=== PATIENT | male | born 1980 | race Caucasian/White ===

== ENCOUNTER 2016-09-15 11:57 | Emergency (ER) | payer MEDICAID ==
[2014-09-13 05:59] VITALS: BMI 27.5
[~2016-09-15 11:57] MED LIST: HYDROCODONE-APA1 TAB PO
[2016-09-15 13:51] LABS: APPEARANCE CLEAR (CLEAR); BILIRUBIN NEGATIVE (NEGATIVE); COLOR YELLOW (YELLOW); GLUCOSE NEGATIVE (NEGATIVE); KETONE NEGATIVE (NEGATIVE); LEUKOCYTE ESTERASE NEGATIVE (NEGATIVE); NITRITE NEGATIVE (NEGATIVE); PROTEIN NEGATIVE (NEGATIVE); SPECIFIC GRAVITY 1.015 (1.005-1.020); UROBILINOGEN NORMAL (NORMAL)
[2016-09-15 13:57] LABS: UDS - AMPHET NEGATIVE QUAL (NEGATIVE); UDS - BARB NEGATIVE QUAL (NEGATIVE); UDS - BENZO POSITIVE QUAL (NEGATIVE); UDS - COCAINE NEGATIVE QUAL (NEGATIVE); UDS - METH NEGATIVE QUAL (NEGATIVE); UDS - OPIATE POSITIVE QUAL (NEGATIVE); UDS - PCP NEGATIVE QUAL (NEGATIVE); UDS - THC NEGATIVE QUAL (NEGATIVE)
== END 2016-09-15 14:28 | disposition home or self-care (01) ==
LOC: D.ER 11:57
PROVIDERS: Nurse Practitioner Acute Care
DX: L25.9 Unspecified contact dermatitis, unspecified cause (principal)

== ENCOUNTER 2016-12-17 14:53 | Emergency (ER) | payer MEDICAID ==
[2014-09-13 05:59] VITALS: BMI 27.5
== END 2016-12-17 19:25 | disposition left against medical advice (07) ==
LOC: D.ER 14:53
DX: M54.2 Cervicalgia (principal)

== ENCOUNTER 2017-02-14 12:06 | Emergency (ER) | payer MEDICAID ==
[2014-09-13 05:59] VITALS: BMI 27.5
== END 2017-02-14 14:17 | disposition home or self-care (01) ==
LOC: D.ER 12:06
DX: M54.12 Radiculopathy, cervical region (principal); F17.200 Nicotine dependence, unspecified, uncomplicated

== ENCOUNTER 2017-04-29 18:26 | Emergency (ER) | payer MEDICAID ==
[2014-09-13 05:59] VITALS: BMI 27.5
== END 2017-04-29 19:45 | disposition home or self-care (01) ==
LOC: D.ER 18:26
DX: M54.5 Low back pain (principal); M62.830 Muscle spasm of back; M54.30 Sciatica, unspecified side; F17.200 Nicotine dependence, unspecified, uncomplicated

== ENCOUNTER 2017-09-29 17:45 | Emergency (ER) | payer MEDICAID ==
[2014-09-13 05:59] VITALS: BMI 27.5
[2017-09-29 18:56] LABS: APPEARANCE CLEAR (CLEAR); BILIRUBIN NEGATIVE (NEGATIVE); COLOR YELLOW (YELLOW); GLUCOSE NEGATIVE (NEGATIVE); KETONE NEGATIVE (NEGATIVE); NITRITE NEGATIVE (NEGATIVE); PROTEIN NEGATIVE (NEGATIVE); UROBILINOGEN NORMAL (NORMAL)
== END 2017-09-29 19:22 | disposition home or self-care (01) ==
LOC: D.ER 17:45
PROVIDERS: Nurse Practitioner Family
DX: M54.2 Cervicalgia (principal); W20.8XXA Other cause of strike by thrown, projected or falling object, initial encounter; Y93.89 Activity, other specified; Y92.019 Unspecified place in single-family (private) house as the place of occurrence of the external cause; F17.200 Nicotine dependence, unspecified, uncomplicated

== ENCOUNTER 2017-10-15 08:27 | Emergency (ER) | payer MEDICAID ==
[2014-09-13 05:59] VITALS: BMI 27.5
== END 2017-10-15 12:21 | disposition left against medical advice (07) ==
LOC: D.ER 08:27
DX: M54.2 Cervicalgia (principal)

== ENCOUNTER 2017-12-08 21:57 | Emergency (ER) | payer MEDICAID ==
[2014-09-13 05:59] VITALS: BMI 27.5
== END 2017-12-09 00:40 | disposition home or self-care (01) ==
LOC: D.ER 21:57
DX: L03.114 Cellulitis of left upper limb (principal)

== ENCOUNTER 2019-05-10 11:22 | Observation (INO) | payer MEDICAID ==
[~2019-05-10] VITALS: Ht 190.5 cm; Wt 108.7 kg
--- NOTE | ~2019-05-10 | HEMODYNAMI ---
PATIENT:NOMI WESTBROOK MEDICAL RECORD: [id number] : 78 [id number] ADMISSION DATE: 05/10/19 Generatedon:05/11/201910:48 Patient name: NOMI WESTBROOK Patient #: [id number] SSN: [id number] : 1980 Date of study: 05/11/2019 Page: Of Hemodynamic Procedure Report Patient Data Patient Demographics Procedure consent was obtained First Name: NOMI Gender: Male Last Name: PIETRO : 1980 Middle Initial: JULIO C Age: 38 year(s) Patient #: [id number] Race: SSN: [id number] Additional ID: [id number] Contact details [address]: [address] [place] [address] State: [place] City: [place] Zip code: [address] Admission Admission Data Admission Date: 05/10/2019 Admission Time: 11:22 Arrival Date: 05/10/2019 Arrival Time: 11:22 Admit Source: Emergency Insurance Payor: Medicaid department Room #: D.2115 Height (in.): 73 BSA: 2.33 (m2) Height (cm.): 185.42 BMI: 31.66 (kg/m2) Weight (lbs.): 240 Weight (kg.): 108.86 Lab Results Lab Result Date: 05/11/2019 Lab Result Time: 0:00 Biochemistry Name Units Result Min Max BUN mg/dl 8 --(*---)-- 7 18 Creatinine mg/dl 0.9 --(-*--)-- 0.6 1.3 eGFR ml/min 90 --(*---)-- 90 120 NONAFRICAN CBC Name Units Result Min Max Hemoglobin g/dl 16.1 --(--*-)-- 13.5 17.5 Procedure Procedure Types Cath Procedure Diagnostic Procedure LHC LHC w/Coronaries Sedation Charges Moderate Sedation up to 15 minutes Procedure Description Procedure Date Procedure Date: 05/11/2019 Procedure Start Time: 10:36 Procedure End Time: 10:45 Procedure Staff Name Function Torres Sams MD Performing Physician Eduarda Howell RT Monitor Maya Johnson RT Scrub Ricco Alexis RT Athlete Marketing Agent Fabiola Clark RN Nurse Procedure Data Cath Procedure Fluoroscopy Diagnostic fluoroscopy Total fluoroscopy Time: 1.4 time: 1.4 min min Diagnostic fluoroscopy Total fluoroscopy dose: 603 dose: 603 mGy mGy Contrast Material Contrast Material Type Amount (ml) Isovue 300 46 Entry Location Entry Primary Successful Side Size Upsize Upsize Entry Closure Mary ccessful Closure Location (Fr) 1 (Fr) 2 (Fr) Remarks Device Remarks Radial Right 6 Fr Mechanical artery Short Compression Estimated blood loss: 5 ml Diagnostic catheters Device Type Used For End Catheter Placement DIAGNOSTIC [place] 110cm 5 Multi-vessel Fr catheter ([id number]) Angiography Procedure Complications No complications Procedure Medications Medication Administration Route Dosage 0.9% NaCl I.V. 100 ml/hr Oxygen etCO2 Nasal cannula 2 l/min Lidocaine 2% added to field 20 Heparin Flush Bag added to field 2 bags (1000units/500ml NS) Radial Cocktail added to field 1 syringe (Verapamil 2mg/Nitro 400mcg/Heparin 1500units) Versed I.V. 2 mg Fentanyl I.V. 100 mcg Versed I.V. 2 mg Versed I.V. 2 mg Solumedrol I.V. 125 mg Hemodynamics Rest BSA: 2.33 (m2) HGB: 16.1 (g/dl) O2 Consumption: Estimated: 296.88 (ml/min) O2 Co nsumption indexed: Estimated:127.42 (ml/min/m) Heart Rate: 83 (bpm) Pressure Samples Time Site Value (mmHg) Purpose Heart Use Rate(bpm) 10:39 LV 85/4,-2 Snapshot 96 10:40 AO 99/75(87) Pullback 88 10:40 LV 105/3,5 Pullback 88 Gradients Valve Time Site 1 Site 2 Mean SEP/DFP Peak To Heart Use (mmHg) (sec/min) Peak Rate (mmHg) (bpm) Aortic 10:40 LV AO 5 16 6 88 105/3,5 99/75(87) Calculations Valve P-P Mean Valve Index Valve Source Name Gradient Area Flow (cm2) Aortic 6 5 6 5 Snapshots Pre Cath Intra NCS Post Cath Vital Signs Time Heart Resp SPO2 etCO2 NIBP (mmHg) Rhythm Pain Sedation Rate (ipm) (%) (mmHg) Status Level (bpm) 10:19:16 70 12 100 41.4 Measuring NSR 0 (11) 10(A) , No pain 10:23:17 67 17 98 42.1 140/91(108) NSR 0 (11) 10(A) , No pain 10:27:58 85 17 99 27.8 139/87(103) NSR 0 (11) 10(A) , No pain 10:32:02 84 16 98 35.4 137/83(104) NSR 0 (11) 10(A) , No pain 10:36:44 76 12 97 40.6 136/78(108) NSR 0 (11) 10(A) , No pain 10:40:50 91 17 97 36.1 117/66(99) NSR 0 (11) 10(A) , No pain 10:44:52 84 16 96 39.1 124/70(95) NSR 0 (11) 10(A) , No pain Medications Time Medication Route Dose Verified Delivered Reason Notes E ffectiveness by by 10:17:36 0.9% NaCl I.V. 100 Torres Fabiola used for ml/hr Flaquita Eduardo procedure MD PEACE 10:17:45 Oxygen etCO2 2 l/min Torres Malhotraa used for Nasal Flaquita Eduardo procedure cannula MD [facility] 10:17:50 Lidocaine 2% added 20ml Torres Macdonald for local to vial Flaquita Flaquita anesthetic field MD LUONG 10:17:55 Heparin Flush added 2 bags Torres Macdonald used for Bag to Flaquita Flaquita procedure (1000units/500ml field MD LUONG NS) 10:18:01 Radial Cocktail added 1 Torres Macdonald used for (Verapamil to syringe Flaquita Flaquita procedure 2mg/Nitro field MD LUONG 400mcg/Heparin 1500units) 10:28:17 Versed I.V. 2 mg Torres Fabiola for Flaquita Eduardo sedation MD [facility] 10:28:27 Fentanyl I.V. 100 mcg Torres Hicks for Flaquita Eduardo sedation MD [facility] 10:33:22 Versed I.V. 2 mg Torres Fabiola for Flaquita Eduardo sedation MD [place] 10:38:36 Versed I.V. 2 mg Torers Fabiola for Flaquita Eduardo sedation RN 10:43:17 Solumedrol I.V. [address] [facility] physician teacher aide Log Time Note 9:59:13 Diagnostic Cath Status : Urgent 10:00:26 Informed consent obtained and on chart 10:00:46 Admit Source: Emergency department 10:00:53 Arrival Date: 05/10/2019 11:22:00 AM 10:01:19 Insurance Payor : Medicaid 10:01:36 Patient Weight : 240 lbs 10:02:00 Patient Height : 73 inches 10:03:42 Lab Result : Creatinine 0.9 mg/dl 10:03:42 Lab Result : BUN 8 mg/dl 10:03:42 Lab Result : eGFR NONAFRICAN 90 ml/min 10:04:05 Lab Result : Hemoglobin 16.1 g/dl 10:04:29 ACC Patient presents with Unstable Angina CCS Anginal Class 3--Marked limitation of physical activity, angina occurs with ordinary activity.. 10:04:40 ACCPatient has been prescribed/administered the following anti-anginal medication within the last 2 weeks: None 10:04:43 Procedure Status Urgent Heart Cath (IP). 10:04:47 Ricco Alexis RT(R) sent for patient. Start room use. 10:04:48 Time tracking: Regular hours (M-F 7:00 - 5:00) 10:04:52 Plan of Care:Hemodynamics will remain stable., Cardiac rhythm will remain stable., Comfort level will be maintained., Respiratory function will remain adequate., Patient/ family verbilizes understanding of procedure., Procedure tolerated without complication., Recovers from procedure without complications.. 10:10:23 Patient received from Med II to CCL 2 Alert and oriented. Tansferred to table in Supine position. 10:10:25 Warm blankets applied, and kip hugger turned on for patient comfort. 10:10:25 Correct patient and procedure confirmed by team. 10:10:27 ECG and BP/O2 sat monitors applied to patient. 10:17:26 Vital chart was started 10:17:36 0.9% NaCl 100 ml/hr I.V. was administered by Fabiola Clark RN; used for procedure; 10:17:45 Oxygen 2 l/min etCO2 Nasal cannula was administered by Fabiola Clark RN; used for procedure; 10:17:50 Lidocaine 2% 20ml vial added to field was administered by Torres Sams MD; for local anesthetic; 10:17:55 Heparin Flush Bag (1000units/500ml NS) 2 bags added to field was administered by Torres Sams MD; used for procedure; 10:18:01 Radial Cocktail (Verapamil 2mg/Nitro 400mcg/Heparin 1500units) 1 syringe added to field was administered by Torres Sams MD; used for procedure; 10:26:19 Baseline sample Acquired. 10:26:22 Rhythm: sinus rhythm 10:26:24 Full Disclosure recording started 10: H&P Date Dictated: 05/11/2019 New H&P dictated by physician.. 10:26:29 Pre-procedure instructions explained to patient. 10::29 Pre-op teaching completed and patient verbalized understanding. 10:26:30 Family in patients room. 10:26:31 Patient NPO since Midnight. 10:26:34 Is the patient allergic to Iodine/contrast media? No. 10:26:35 Was the patient premedicated? No 10:26:36 Is patient on blood thinner?No 10:26:37 Patient diabetic? No. 10:26:42 Previous problem with sedation/anesthesia? No ? 10::43 Snore? Yes 10:26:44 Sleep apnea? No 10:26:45 Deviated septum? No 10:26:46 Opens mouth fully? Yes 10:26:47 Sticks out tongue? Yes 10:26:48 Airway obstruction? No ? 10:26:52 Dentures? Yes out 10:26:55 Pre procedure: right dorsailis pedis pulse 2+ Normal; easily identifiable; not easily obliterated 10:26:57 Pre procedure: left dorsailis pedis pulse 2+ Normal; easily identifiable; not easily obliterated 10:26:59 Patient pain scale 0/10 ?. 10:27:11 IV patent on arrival in left forearm with 0.9% NaCl at [facility]. 10:27:14 Lab results completed and on chart. 10:27:19 Right Radial & Right Groin area was prepped with chlora-prep and draped in sterile fashion 10:27:20 Alarms reviewed by R. N. 10:27:20 Sharps counted by scrub and verified by R.N. 10:27:21 Physician arrived 10:: --------ALL STOP TIME OUT------ :: Final Timeout: patient, procedure, and site verified with staff and physician. All members of the team are in agreement. 10:27:24 Right Radial & Right Groin site verified by team. 10::27 Fire Safety Assessment: A--An alcohol-based skin anteseptic being used preoperatively., C--Open oxygen or nitrous oxide is being used., D--An ESU, laser, or fiber-optic light is being used. 10:27:30 Physical assessment completed. ASA score P 2 - A patient with mild systemic disease as per Torres Sams MD. 10:27:33 1) 90+ Normal kidney functon but urine findings or structural abnormalities or genetic trait point to kidney disease. 10:27:36 Maximum allowable contrast dose (3.7 X eGFR X 0.75)250 ml. 10:27:42 Sedation plan: IV Moderate Sedation Medication:Versed, Fentanyl 10:28:17 Versed 2 mg I.V. was administered by Fabiola Clark RN; for sedation; 10::27 Fentanyl 100 mcg I.V. was administered by Fabiola Clark RN; for sedation; 10:29:00 Use device set Femoral Dx 10:29:01 ACIST Syringe (78159) opened to sterile field. 10:29:01 Bag Decanter (2001S) opened to sterile field. 10:29:02 Medline Cath Pack ([id number]) opened to sterile field. 10:29:03 ACIST Hand Control (30616) opened to sterile field. 10:29:03 ACIST Manifold (56246) opened to sterile field. 10:29:04 Tegaderm 4 x 4 (1626W) opened to sterile field. 10:29:06 EMERALD Guide Wire (865-502) opened to sterile field. 10:33:22 Versed 2 mg I.V. was administered by Fabiola Clark RN; for sedation; 10:36:35 Procedure started. 10:36:50 Local anesthetic to right radial artery with Lidocaine 2% by Torres Sams MD.INITIAL ACCESS ONLY 10:37:08 A 6 Fr Short sheath was inserted into the Right Radial artery 10:37:42 SHEATH 6FR RAIN ([id number]) opened to sterile field. 10:38:00 A DIAGNOSTIC [place] 110cm 5 Fr catheter (550567) was advanced over the wire and used for Multi-vessel Angiography. 10:38:02 Zero performed for pressure channel P1 10:38:36 Versed 2 mg I.V. was administered by Fabiola Clark RN; for sedation; 10:39:48 LV hemodynamics recorded. 10:39:50 LV gram done using MILIAN 10:39:55 Injector settings: Ml/sec: 5, Volume: 15, 10:40:03 EF : 55 % 10:40:15 LCA angiography performed. 10:40:18 Injector settings: Ml/sec: 3, Volume: 6, 10:41:11 RCA angiography performed. 10:41:13 Injector settings: Ml/sec: 3, Volume: 6, 10:41:15 ACCDominant side:Right 10:41:21 Catheter removed. 10:41:36 ZEPHYR REGULAR TR BAND (989689) opened to sterile field. 10:42:32 Sheath removed intact; hemostasis achieved with Mechanical Compression to the Right Radial artery. 10:42:34 Procedure ended.(Physican Out) 10:43:09 Fluoroscopy time 01.40 minutes. 10:43:17 Solumedrol 125 mg I.V. was administered by Fabiola Clark RN; Per physician; 10:43:19 Flurop Dose total: 603 10:43:19 Fluoroscopy dose: 603 mGy 10:43:36 Dose Area Product 31961 mGy/cm. 10:43:40 Contrast amount:Isovue 300 46ml. 10:44:02 Waldron band inflated with 10cc of air. 10:44:41 Post right radial artery:stable 10:45:12 Insertion/operative site no bleeding no hematoma. 10:45:14 Post Procedure Pulses reassessed and unchanged 10:45:17 Post procedure rhythm: unchanged. 10:45:20 Estimated blood loss: 5 ml 10:45:21 Post procedure instruction explained to patient.Patient verbalizes understanding. 10:45:22 Patient needs reinforcement of post procedure teaching. 10:45:31 Procedure type changed to Cath procedure, Diagnostic procedure, LHC, LHC w/Coronaries, Sedation Charges, Moderate Sedation up to 15 minutes 10:45:32 Procedure and supply charges have been captured, reviewed, submitted and are correct. 10:45:39 Procedure Complication : No complications 10:45:42 Vital chart was stopped 10:45:42 See physician's report for complete and final results. 10:45:54 Report given to Pre/Post Procedure Room. 10:45:57 Patient transfered to Pre/Post Procedure Room with Stretcher. 10:45:59 Procedure ended. 10:45:59 Full Disclosure recording stopped 10:46:04 End room use (Document Last) Device Usage Item Name Manufacture Quantity Catalog Hospital Part Current Minimal Lot# / Number Charge Number Stock Stock Serial# Code ACIST Acist 1 21814 491973 273451 047378 20 Syringe Medical (36996) Systems Inc Bag Microtek 1 2001S 967749 22793 721264 5 Decanter Medical Inc. (2001S) Medline Medline 1 [id number] 598966 01177 394934 5 Cath Pack ([id number]) ACIST Hand Acist 1 44980 247040 272954 798601 5 Control Medical (54946) Systems Inc ACIST Acist 1 22102 452037 233235 247665 5 Manifold Medical (02105) Systems Inc Tegaderm 4 3M 1 1626W 402746 940216 272061 5 x 4 (1626W) EMERALD Cardinal 1 502-455 231067 012462 149585 5 Guide Wire Health (502-455) SHEATH 6FR Cardinal 1 [id number] 678892 7486229 238537 5 [facility] (8949349) DIAGNOSTIC Terumo 1 40-5013 356732 321878 870946 5 [place] 110cm 5 Fr catheter (109026) ZEPHYR Cardinal 1 149330 961045 8812423 297965 5 REGULAR TR Health BAND (676873) Signature Audit Haskell Stage Time Signature Unsigned Intra-Procedure 05/11/2019 Eduarda Howell 10:48:13 AM RT(R) Signatures Performing Physician : Signature : Torres Sams MD Date : Time : Monitor : Eduarda Dante RT Signature : Date : Time : Nurse : Fabiola Clark RN Signature : Date : Time : [address] [place] [address]
[2019-05-10] MEDS ORDERED: BAYER CHEWABLE81 MG PO (11:29)
[2019-05-10] MEDS ORDERED: ZESTRIL10 MG PO (11:29)
[2019-05-10] MEDS ORDERED: METOPROLOL TART50 MG PO (11:29)
[2019-05-10] MEDS ORDERED: NEURONTIN 400400 MG PO (11:29)
[2019-05-10] MEDS ORDERED: BUPRENORPHIN-N1 EACH SL (11:30)
[2019-05-10] MEDS ORDERED: OMEPRAZOLE20 M1 PO (11:30)
[2019-05-10 11:54] LABS: BASOPHILS 0.1 % (0-2); EOSINOPHILS 2.2 % (0-7); HEMATOCRIT 44.2 % (42.0-54.0); HEMOGLOBIN 16.1 g/dL (13.5-17.5); IMMATURE GRANULOCYTES 0.1 % (0-5); MCH 31.4 pg (26.0-34.0); MCHC 36.4 g/dL (31.0-37.0); MCV 86.3 fL (80.0-100.0); MEAN PLATELET VOLUME 10.3 fL (7.4-10.4); MONOCYTES 7.1 % (2-11); NEUTROPHILS 61.5 % (40-80); PLATELET COUNT 228 10x3/uL (130-400); RBC 5.12 10x6/uL (4.20-6.10); RDW 13.1 % (11.5-14.5); WBC 7.2 10x3/uL (4.8-10.8)
[2019-05-10 11:55] VITALS: BP 124/90
[2019-05-10 11:59] LABS: APTT 31.7 SECONDS (22.8-39.4); INR 0.98 (0.85-1.17); PROTIME 12.5 SECONDS (11.6-15.0)
[2019-05-10 12:02] LABS: D-DIMER-QUANTITATIVE 0.52 ug/mLFEU (0.20-0.54)
[2019-05-10 12:04] LABS: ALBUMIN 3.8 g/dL (3.4-5.0); ALKALINE PHOSPHATASE 119 U/L (46-116); ALT (SGPT) 30 U/L (10-68); BILIRUBIN - TOTAL 0.44 mg/dL (0.2-1.3); CALC OSMOLALITY 274 mosm/kg (275-300); CALCIUM 9.2 mg/dL (8.5-10.1); CARBON DIOXIDE 26.3 mmol/L (21.0-32.0); CHLORIDE - SERUM 105 mmol/L (98-107); CREATININE - SERUM 0.9 mg/dL (0.6-1.3); POTASSIUM - SERUM 4.2 mmol/L (3.5-5.1); PROTEIN - SERUM 7.6 g/dL (6.4-8.2); SODIUM 138 mmol/L (136-145); UREA NITROGEN 8 mg/dL (7-18); eGFR NON AFRICAN AMERICAN > 90 mL/min (90-120)
[2019-05-10 12:06] LABS: GLUCOSE 118 mg/dL (74-106)
[2019-05-10 12:15] LABS: CKMB 0.9 U/L (0.0-3.6); CREATINE KINASE 71 UL (21-232); MAGNESIUM - SERUM 1.6 mg/dL (1.8-2.4); PRO BNP 43 pg/mL (0-125); TROPONIN-I < 0.017 ng/mL (0.000-0.060)
--- NOTE | 2019-05-10 12:19 | NUR ---
REPORTS LOP [address] VEGA AT THIS TIME.
--- NOTE | 2019-05-10 12:30 | NUR ---
PATIENT UPDATED ON PLAN OF CARE AND DELAYS IN CARE; SKIN IS DRY AND NO LONGER DIAPHORETIC; REPORTS IMPROVEMENT IN CHEST PRESSURE/TIGHTNESS.
--- NOTE | 2019-05-10 12:58 | NUR ---
ATTEMPTED TO CALL REPORT; NURSE UNAVAILABLE AT THIS TIME; WAS TOLD THEY WOULD HAVE HER CALL ME BACK;
--- NOTE | 2019-05-10 13:19 | NUR ---
TRANSFER FROM ER BY W/C. TEJASINTED TO ROOM. CALL LIGHT IN REACH. WILL CONT. PLAN OF CARE.
[2019-05-10 14:02] VITALS: BP 138/103; Ht 190.5 cm; Wt 108.7 kg
[2019-05-10 15:30] VITALS: BP 123/83
[2019-05-10 17:21] LABS: CREATINE KINASE 59 UL (21-232)
[2019-05-10 17:22] LABS: TROPONIN-I < 0.017 ng/mL (0.000-0.060)
[2019-05-10 20:00] VITALS: BP 117/70
--- NOTE | 2019-05-10 20:08 | NUR ---
INITIAL ROUNDS AND ASSESSMENT COMPLETED AND PT IS RESTING IN BED WITH NO DISTRESS. SR/80 PER TELEMETRY. PT ALERT/ORIENTED. DENIES CHEST PAIN, DOES HAVE A MILD HEADACHE FROM NITRO RECIEVED EARLIER. CPOC. WILL BE NPO AT MIDNIGHT UNTIL SEEN BY FLOOR PRESS OPERATOR IN AM.
--- NOTE | 2019-05-10 21:28 | NUR ---
RESTING IN BED WITH NO FURTHER C/O HEADACHE. CPOC.
[2019-05-10 23:42] LABS: CKMB 0.9 U/L (0.0-3.6); CREATINE KINASE 58 UL (21-232)
[2019-05-10 23:43] LABS: TROPONIN-I < 0.017 ng/mL (0.000-0.060)
[2019-05-11] VITALS: BP 120/76
[2019-05-11 04:30] VITALS: BP 116/71
--- NOTE | 2019-05-11 06:38 | NUR ---
NO CHANGE FROM INITIAL SHIFT ASSESSMENT. CALL LIGHT IN REACH. CPOC. NPO UNTIL SEEN BY CARIOLOGIST.
[2019-05-11 08:30] VITALS: BP 122/78
[2019-05-11 10:21] LABS: CALC OSMOLALITY 285 mosm/kg (275-300); CALCIUM 8.9 mg/dL (8.5-10.1); CHLORIDE - SERUM 105 mmol/L (98-107); CREATININE - SERUM 0.9 mg/dL (0.6-1.3); GLUCOSE 109 mg/dL (74-106); SODIUM 143 mmol/L (136-145); eGFR NON AFRICAN AMERICAN > 90 mL/min (90-120)
[2019-05-11 10:23] LABS: UREA NITROGEN 12 mg/dL (7-18)
--- NOTE | 2019-05-11 11:00 | NUR ---
PT RECEIVED VIA STRETCHER FROM ELECTROTYPER FOR RECOVERY. PT AWAKE, DENIES PAIN OR DISCOMFORT. ZEPHYER BAND AND IMMOBILIZER IN PLACE, DRESSING CDI NO BLEEDING OR HEMATOMA NOTED. ARM PINK AND WARM, CAP REFILL BRISK. IV PATENT INFUSING VIA L ARM PER ORDERS. HR NSR RATE 74, BP 139/94, O2 SAT 91, RR 14. O2 PLACED VIA NC AT 2L. CALL LIGHT IN REACH, NO FAMILY PRESENT
--- NOTE | 2019-05-11 11:29 | NUR ---
PT SITTING UP IN BED VISITING W MOM, Z BAND AND IMMOBILIZER IN PLACE. NO BLEEDING OR SWELLING NOTED. TOLERATED FOOD AND ORAL FLUIDS W/O NAUSEA. CALL LIGHT IN REACH. DR TIRADO IN ROOM SPOKE WITH PT AND MOTHER REGARDING PLAN OF CARE AND PROCEDURE RESULTS.
--- NOTE | 2019-05-11 11:45 | NUR ---
PT VOIDED 300CC CLEAR YELLOW URINE IN URINAL. Z BAND AND IMMOBILIZER IN PLACE, 5CC AIR REMOVED PER PROTOCOL W/O BLEEDING OR HEMATOMA NOTED. IV INFUSING VIA ORDERS. VSS. PT DENIES PAIN OR NEEDS. CALL LIGHT IN REACH
--- NOTE | 2019-05-11 12:15 | NUR ---
PT RESTING COMFORTABLY, VSS. Z BAND AND IMMOBILIZER IN PLACE, NO BLEEDING OR SWELLING NOTED. VSS. ARM PINK AND WARM, CAP REFILL BRISK. MOTHER AT BS.
--- NOTE | 2019-05-11 12:45 | NUR ---
Z BAND AND REMAINING AIR REMOVED W/O BLEEDING OR HEMATOMA. 2X2 AND TEGADERM DRESSING APPLIED AND IMMOBILIER RE APPLIED.
--- NOTE | 2019-05-11 12:45 | NUR ---
ROCEPHIN 1GR IVPB PER PUMP STARTED. 3 ADD'L CC AIR REMOVED FRO Z BAND. NO BLEEDING OR SWELLING NOTED. PT DENIES PAIN OR NEEDS AT THIS TIME. WILL D/C AFTER ROCEPHIN INFUSIN. CALL LIGHT IN REACH
--- NOTE | 2019-05-11 13:10 | NUR ---
DISCHARGE INSTRUCTIONS REVIEWED W PT AND MOM, BOTH VERBALIZED UNDERSTANDING. ROCEPHIN STILL INFUSING VIA PUMP. VSS. CRITERIA MET FOR DISCHARGE WHEN MEDICAION INFUSING IS COMPLETE. CALL LIGHT IN REACH, DENIES NEEDS
--- NOTE | 2019-05-11 13:30 | NUR ---
ROCEPHIN 1VPB INFUSION COMPLETED. 1340 IV REMOVED W CATH INTACT, MONITORS REMOVED. PT UP TO DRESS FOR DISCHARGE
--- NOTE | 2019-05-11 13:55 | NUR ---
PT AMBULATED TO BR, VOIDING W/O DIFFICULITY. PT THEN DISCHARGED VIA WC TO PRIVATE VEHICLE TO MOM WAITING. PT HAS ALL BELONGINGS AND DISCHARGE INSTRUCTIONS
--- NOTE | 2019-05-12 13:03 | EC ---
PATIENT:NOMI WESTBROOK DATE OF SERVICE: 05/10/19 SEX: M MEDICAL RECORD: [id number] DATE OF : [birth year] LOCATION:D.OPS AGE OF PATIENT: 38 ADMISSION DATE: 05/10/19 REFERRING PHYSICIAN: INTERPRETING PHYSICIAN: MAUREEN TIRADO MD ECHOCARDIOGRAM REPORT ECHO CHARGES 4 ECHO COMPLETE Date: 05/11/19 CLINICAL DIAGNOSIS: RAMOS ECHOCARDIOGRAPHIC MEASUREMENTS (adult normal given) AC root (d.<3.7cm) 3.1 cm LV Septum d (<1.2 cm> 1.1 cm Valve Excursion 1.9 cm LV Septum (systole) 1.4 cm Left Atria (s.<4.0cm> 3.5 cm LVPW d(<1.2cm) 1.2 cm RV (d.<2.3cm) 2.5 cm LVPW (sytole) 1.5 cm LV diastole(<5.6CM) 4.5 cm MV E-F(>70mm/sec) cm LV systole 3.2 cm LVOT Diameter 2.1 cm MV exc.(>10mm) cm Est.ejection fraction (50-75%) % DOPPLER: LVIT cm/sec A 42 cm/sec E 70 cm/sec LA cm/sec RVSP 15.8 mmHg LVOT 84 cm/sec AOP1/2T m/s Asc. Ao 108 cm/sec RVOT 63 cm/sec RA cm/sec PA 86 cm/sec AV Gradient Peak 4.6 mmHg AV Mean 2.5 mmHg AV Area 3.1 cm MV Gradient Peak 2.4 mmHg MV Mean 1.3 mmHg MV Area cm COMMENTS: Fishing Line Winding Machine Operator: Mariely [facility] Facilities Maintenance Worker: 3 Dr. Ray TAPE# PACS Pericardial Effusion N DATE OF SERVICE: Adequate 2D, color flow, spectral Doppler, and M-mode. No LVH. LV internal dimension is normal. Wall motion is normal. EF is greater than or equal to 55%. Aortic valve is tricuspid. No evidence of stenosis by Doppler interrogation. Left atrium is normal at 3.5 cm. Mitral valve shows no prolapse. Trace MR. Right-sided chambers grossly normal. Trace TR. TRANSINT:[id number] Voice Confirmation ID: [id number] DOCUMENT ID: [id number] ECHOCARDIOGRAM REPORT [id number] NOMI WESTBROOK MAUREEN TIRADO MD at 1303 CC: [id number] DICTATION DATE: 05/11/19 1139 DIRECTOR PROCESS: 05/11/19 1222 DEP CLI 05/11/19 [id number] [place] [address]
--- NOTE | 2019-05-12 13:03 | DS ---
PATIENT:NOMI WESTBROOK :[birth year] MEDICAL RECORD: [id number] DISCHARGE SUMMARY ADMISSION DATE: 05/10/19 DISCHARGE DATE: 05/11/19 DATE OF ADMISSION: 05/10/2019 DATE OF DISCHARGE: 05/11/2019 PROBLEM LIST: 1. Acute coronary syndrome. 2. Hypertension. BRIEF HISTORY AND HOSPITAL COURSE: Admitted with symptom description for class IV angina, multiple risk factors. Underwent diagnostic angiography, it showed good LV function, normal coronary anatomy. Discharged home in good condition. ACTIVITY: As tolerated. DIET: AHA diet. He will follow up with primary care, cardiology as needed. TRANSINT:[id number] Voice Confirmation ID: [id number] DOCUMENT ID: [id number] MAUREEN TIRADO MD at 1303 CC: [id number] DICTATION DATE: 05/11/19 1105 ASSOCIATE STORE MANAGER: 05/11/19 2330 DEP CLI 05/11/19 [address] [id number] [place] [address]
--- NOTE | 2019-05-12 13:03 | HP ---
PATIENT: NOMI WESTBROOK MEDICAL RECORD: [id number] ACCOUNT: [id number] LOCATION:[facility] : [birth year] ADMISSION DATE: 05/10/19 PCP: MEGNA GARRISON MD HISTORY AND PHYSICAL EXAMINATION HISTORY OF PRESENT ILLNESS: A 38-year-old gentleman with no known history of coronary artery disease, has a strong family history of coronary artery disease, has a history of hypertension 4 years duration, ongoing tobacco use, admitted with rather aggressive angina to class IV, had onset of rest symptomatology, relieved promptly with nitroglycerin, noticed effort intolerance at the same time. PAST MEDICAL HISTORY: Includes: 1. History of hypertension. 2. Hyperlipidemia, currently on dietary controlled. 3. Chronic back pain. 4. Gastroesophageal reflux disease. ALLERGIES: SULFA. MEDICATIONS: Include lisinopril 10 mg p.o. every day, metoprolol 50 b.i.d., aspirin 81 every day, Suboxone 1 tab b.i.d., Neurontin 400 q.i.d., omeprazole 20 every day. SOCIAL HISTORY: , 2 kids. Smokes about a pack a day, nondrinker. No set exercise program. He is able to take care of his ADLs. REVIEW OF SYSTEMS: The patient reports easy bruising but reports no swollen glands. The patient reports no fever, no night sweats, no significant weight gain, no significant weight loss. No significant exercise tolerance. The patient reports no dry eyes, no irritation, no vision change. Patient reports no difficulty hearing and no ear pain. Patient reports no frequent nose bleeds or nose and sinus problems. Patient reports on arm pain on exertion. No shortness of breath while lying down. No history of heart murmur. Patient reports no cough, no wheezing or coughing up blood. Patient reports no abdominal pain, no vomiting. Normal appetite. No diarrhea and not vomiting blood. No nausea and no constipation. Patient reports no incontinence. No difficulty urinating. No hematuria. No increased frequency. Patient reports no muscle aches. No weakness, no arthralgias, no back pain. No swelling of the extremities. Patient reports no abnormal mole, no jaundice, no rashes. Reports no loss of consciousness. No weakness and no numbness. No seizures, dizziness, or headaches. The patient reports no depression, no sleep disturbance, feeling safe in a relationship and no alcohol abuse. Patient reports on fatigue. Reports no runny nose or sinus pressure. No itching, no hives, and no frequent sneezing. PHYSICAL EXAMINATION: GENERAL: Pleasant gentleman in no acute distress, appears stated age. VITAL SIGNS: Blood pressure 121/78, pulse 75 and regular. HEENT: Normocephalic, atraumatic. NECK: No bruits are noted. HEART: Regular, II/ systolic ejection murmur. LUNGS: Good air excursion. ABDOMEN: Soft, nontender. EXTREMITIES: Pulses 2+ with no edema. HISTORY AND PHYSICAL [id number] NOMI WESTBROOK DIAGNOSTIC DATA: ECG shows poor R-wave progression. IMPRESSION: Class IV angina, strong family history of coronary artery disease, and long-term smoking history, hypertension, hyperlipidemia, untreated. We will plan for angiography, intervention based on the above. TRANSINT:[id number] Voice Confirmation ID: [id number] DOCUMENT ID: [id number] MAUREEN TIRADO MD at 1303 CC: [id number] DICTATION DATE: 05/11/19 1103 MARKET RESEARCH ASSOCIATE: 05/11/19 1128 DEP CLI 05/11/19 [facility] [address] [place] [address]
--- NOTE | 2019-05-12 13:03 | OP ---
PATIENT NAME: NOMI WESTBROOK MEDICAL RECORD: [id number] :78 LOCATION:[facility] ADMISSION DATE: SURGEON: MAUREEN TIRADO MD DATE OF OPERATION: 05/11/2019 PROCEDURE: Left heart catheterization, selective coronary angiography, right radial approach. CATHETERS: Tyler catheter, radial sheath. The procedure was well tolerated and the patient was returned to the [facility]. Sheath was removed. TR band was placed. Left ventriculography in 30-degree MILIAN view: Normal wall motion, normal systolic function. CORONARY ANATOMY: LEFT MAIN: Left main is free of disease. LAD: Free of disease in the diagonal system. CIRCUMFLEX: Free of disease in the marginal system. RIGHT CORONARY ARTERY: Dominant artery, gives rise to PDA, free of disease. IMPRESSION: Normal LV systolic function, normal coronary anatomy. TRANSINT:[id number] Voice Confirmation ID: [id number] DOCUMENT ID: [id number] MAUREEN TIRADO MD at 1303 CC: [id number] DICTATION DATE: 05/11/19 1104 [facility]POINT APPLICATION DEVELOPER: 05/11/19 1211 DEP CLI 05/11/19 [place] [id number] [place] [id number]
== END 2019-05-11 13:50 | disposition home or self-care (01) ==
LOC: D.ER 11:22 → D.M2 11:22 → D.OPS 11:22 → D.M2 12:36 → D.OPS 12:36 → OBSVTIME 12:39 → D.M2 12:39 → EDSTATUS 12:46 → D.CLR 05-11 11:00 → D.M2 05-11 11:00 → D.CLR 05-11 13:50 → D.M2 05-11 13:50 → D.OPS 05-11 13:50
PROVIDERS: Emergency Medicine; ADMIT Internal Medicine Interventional Cardiology; ATTEND Internal Medicine Interventional Cardiology
DX: I20.9 Angina pectoris, unspecified (principal); I10 Essential (primary) hypertension; E78.5 Hyperlipidemia, unspecified; Z72.0 Tobacco use

== ENCOUNTER 2019-05-15 13:08 | Emergency (ER) | payer MEDICAID ==
[~2019-05-15] VITALS: Ht 190.5 cm; Wt 109.1 kg
[~2019-05-15 13:08] MED LIST changes: +BAYER CHEWABLE81 MG PO; +BUPRENORPHIN-N1 EACH SL; +METOPROLOL TART50 MG PO; +NEURONTIN 400400 MG PO; +OMEPRAZOLE20 M1 PO; +ZESTRIL10 MG PO
[2019-05-15 13:28] VITALS: Ht 190.5 cm; Wt 109.1 kg
[2019-05-15 16:42] VITALS: BP 128/69
== END 2019-05-15 16:43 | disposition home or self-care (01) ==
LOC: D.ER 13:08
DX: S60.211A Contusion of right wrist, initial encounter (principal); Y93.83 Activity, rough housing and horseplay